=== PATIENT | male | born 1955 | race Hispanic/Latino ===

== ENCOUNTER 2023-11-14 10:07 | Emergency (ER) | payer MEDICARE ==
[~2023-11-14] VITALS: Ht 175.3 cm; Wt 86.2 kg
[~2023-11-14 10:07] MED LIST: BYSTOLIC5 MG PO; FLAGYL500 MG PO; LEVAQUIN500 MG PO; LOSARTAN POTAS100 MG PO; METOPROLOL TART50 MG PO; PANTOPRAZOLE SO40 MG PO
[2023-11-14 10:12] VITALS: TEMP 98.7
[2023-11-14] MEDS: SODIUM CHLORIDE 0.9% 1000ML 1,000 ML IV STA (10:48)
[2023-11-14] MEDS: ONDANSETRON HCL INJ 2MG/ML 2ML 2 MG/ML VIAL IV STA (10:49)
[2023-11-14 10:55] LABS: BASOPHILS # (AUTO) 0.1 (0.0-0.1); BASOPHILS % 0.4 % (0.0-1.0); EOSINOPHILS # (AUTO) 0.2 (0.0-0.4); EOSINOPHILS % 1.4 % (0.0-6.0); HEMATOCRIT 40.7 % (38.2-49.6); HEMOGLOBIN 13.1 g/dL (14.0-18.0); LYMPHOCYTES # (AUTO) 2.3 (1.0-3.2); LYMPHOCYTES % 13.2 % (18.0-39.1); MEAN CORPUSCULAR HEMOGLOBIN 30.5 pg (28-32); MEAN CORPUSCULAR HGB CONC 32.2 g/dL (31-35); MEAN CORPUSCULAR VOLUME 94.7 fL (81-99); MONOCYTES % 11.6 % (4.4-11.3); NEUTROPHILS # (AUTO) 12.5 (2.1-6.9); NEUTROPHILS % 73.1 % (38.7-80.0); PLATELET COUNT 272 x10e3/uL (140-360); RED CELL DISTRIBUTION WIDTH 12.5 % (11.7-14.4)
[2023-11-14 10:58] LABS: CLARITY,URINE SL CLOUDY (CLEAR); COLOR,URINE YELLOW (YELLOW)
[2023-11-14 11:00] LABS: BILIRUBIN,URINE NEGATIVE (NEGATIVE); GLUCOSE, URINE NEGATIVE (NEGATIVE); KETONES,URINE NEGATIVE (NEGATIVE); LEUKOCYTE ESTERASE ,URINE NEGATIVE (NEGATIVE); NITRITE,URINE NEGATIVE (NEGATIVE); PH,URINE 5.5 (5 - 7); PROTEIN,URINE DIPSTICK NEGATIVE (NEGATIVE); URINE UROBILINOGEN 0.2 mg/dL (0.2 - 1)
[2023-11-14 11:05] LABS: BACTERIA,URINE MODERATE /HPF; EPITHELIAL CELLS,URINE FEW /LPF; URIC ACID CRYSTALS,URINE FEW (FEW)
[2023-11-14 11:08] LABS: INR 1.03; PROTHROMBIN TIME 14.2 seconds (11.9-14.5)
[2023-11-14 11:16] LABS: ALANINE AMINOTRANSFERASE 19 IU/L (0-55); ALBUMIN 3.6 g/dL (3.5-5.0); ALBUMIN/GLOBULIN RATIO 1.1 (0.8-2.0); ALKALINE PHOSPHATASE 61 IU/L (40-150); ANION GAP 16.5 mmol/L (8-16); BILIRUBIN,TOTAL 1.1 mg/dL (0.2-1.2); BLOOD UREA NITROGEN 14 mg/dL (7-26); BUN/CREATININE RATIO 8 (6-25); CALCIUM 9.3 mg/dL (8.4-10.2); CARBON DIOXIDE 24 mmol/L (22-29); CHLORIDE 106 mmol/L (98-107); CREATININE, SERUM 1.73 mg/dL (0.72-1.25); EST GLOMERULAR FILTRATION RATE 43 ML/MIN (>=60); GLUCOSE 120 mg/dL (74-118); MAGNESIUM 1.9 MG/DL (1.3-2.1); POTASSIUM 4.5 mmol/L (3.5-5.1); SODIUM 142 mmol/L (136-145); TOTAL PROTEIN 6.9 g/dL (6.5-8.1)
[2023-11-14 11:22] LABS: TROPONIN I < 0.001 ng/mL (0-0.300)
[2023-11-14] MEDS ORDERED: IOPAMIDOL 370 MG/ML 100 ML INFUS..BTL INJ ONE (11:29)
[2023-11-14] MEDS: METRONIDAZOLE 500MG/NS 100ML 100 ML IV SCH (12:39)
[2023-11-14] MEDS: VANCOMYCIN HCL 125 MG CAPSULE PO SCH (12:39)
[2023-11-14 14:15] VITALS: PULSE 74; RESP 17; O2SAT 96
== END 2023-11-14 15:55 | disposition other institution (70) ==
LOC: ER 10:14
DX: K52.9 Noninfective gastroenteritis and colitis, unspecified (principal); E86.0 Dehydration; N28.9 Disorder of kidney and ureter, unspecified; I10 Essential (primary) hypertension; Z79.2 Long term (current) use of antibiotics; Z87.19 Personal history of other diseases of the digestive system
CPT/HCPCS: 36415; 74177; 80053; 81001; 83735; 84484; 85025; 85610; 87086; 87324; 87449; 93005; 99284; C9113; J2405; J7030; Q9967; J2470

== ENCOUNTER 2025-01-15 21:02 | Emergency (ER) | payer MEDICARE ==
[~2025-01-15] VITALS: Ht 175.3 cm; Wt 86.2 kg
[2025-01-15 22:00] VITALS: PULSE 94; RESP 18; TEMP 98.6
[2025-01-15 22:18] LABS: LEUKOCYTE ESTERASE ,URINE NEGATIVE (NEGATIVE); PROTEIN,URINE DIPSTICK 1+ (NEGATIVE); URINE UROBILINOGEN 0.2 mg/dL (0.2 - 1)
[2025-01-15 22:28] LABS: EPITHELIAL CELLS,URINE FEW /LPF; WBC,URINE (MAN) 21-50 /HPF (0-5)
[2025-01-15 22:48] LABS: BASOPHILS % 0.3 % (0.0-1.0); EOSINOPHILS % 0.1 % (0.0-6.0); LYMPHOCYTES % 9.4 % (18.0-39.1); MONOCYTES % 2.4 % (4.4-11.3); NEUTROPHILS % 87.5 % (38.7-80.0); RED CELL DISTRIBUTION WIDTH 12.5 % (11.7-14.4)
[2025-01-15 23:05] LABS: EST GLOMERULAR FILTRATION RATE 78 ML/MIN (>=60)
[2025-01-15] MEDS: SODIUM CHLORIDE 0.9% 1000ML 1,000 ML IV STA (23:22)
[2025-01-15] MEDS: Morphine 4mg INJECTION 4 MG/ML INJ IV STA (23:22)
[2025-01-15] MEDS: ONDANSETRON HCL INJ 2MG/ML 2ML 2 MG/ML VIAL IV STA (23:22)
[2025-01-15] MEDS ORDERED: IOPAMIDOL 370 MG/ML 100 ML INFUS..BTL INJ ONE (23:33)
[2025-01-16] MEDS ORDERED: ONDANSETRON ODT4 MG PO (01:27)
[2025-01-16] MEDS ORDERED: PROTONIX40 MG PO (01:27)
[2025-01-16] MEDS: MAGNESIUM/ALUMINUM/SIMETHICONE 30 ML UDC PO STA (01:53)
[2025-01-16] MEDS: LIDOCAINE VISC 2% SOLN 15 ML UDC PO STA (01:53)
[2025-01-16] MEDS: BELLADONNA ALK/PHENOBARBITAL 5 ML UDC PO ONE (01:54)
[2025-01-16 01:59] VITALS: BP 150/72; PULSE 63; RESP 16; TEMP 97.9; O2SAT 99
[2025-01-17] MEDS ORDERED: PANTOPRAZOLE SO40 MG PO (05:50)
== END 2025-01-16 02:05 | disposition home or self-care (01) ==
LOC: ER 21:08
DX: R10.33 Periumbilical pain (principal); R11.2 Nausea with vomiting, unspecified; I10 Essential (primary) hypertension; K21.9 Gastro-esophageal reflux disease without esophagitis; R94.31 Abnormal electrocardiogram [ECG] [EKG]; Z87.19 Personal history of other diseases of the digestive system
CPT/HCPCS: 36415; 74177; 80053; 81001; 82550; 83690; 84484; 85025; 93005; 99284; J2270; J2405; J7030; Q9967